=== PATIENT | female | born 1960 | race Caucasian/White ===

== ENCOUNTER 2023-04-05 23:05 | Emergency (ER) | payer BC, OTHER ==
[2023-04-05] MEDS ORDERED: Acetaminophen/HYDROcodone 325-5 MG Tab ONE (23:45)
[2023-04-06] MEDS ORDERED: Ketorolac 60 MG/2 ML SDV IM ONE (00:19)
[2023-04-06] MEDS ORDERED: Ondansetron 4 MG Tab.DIS PO ONE (00:20)
[2023-04-06] MEDS ORDERED: Ketorolac 30 MG/ML SDV ONE (00:24)
[2023-04-06 02:24] VITALS: BP 109/69; PULSE 82
== END 2023-04-06 01:25 | disposition home or self-care (01) ==
LOC: LB.ED 23:05
DX: S42.352A Displaced comminuted fracture of shaft of humerus, left arm, initial encounter for closed fracture (principal); W01.198A Fall on same level from slipping, tripping and stumbling with subsequent striking against other object, initial encounter; Y93.02 Activity, running
CPT/HCPCS: 29105; 73030; 73100; 96372; 99283; J1885; Q0162; A9270-GY